=== PATIENT | male | born 1970 | race Hispanic/Latino ===

== ENCOUNTER 2024-01-22 10:07 | Inpatient (IN) | payer OTHER ==
[2024-01-22 11:10] LABS: Absolute Eosinophils 0.1 K/uL (0-0.5); Absolute Lymphocytes (CBC) 1.8 K/uL (0.7-4.9); Absolute Monocytes 0.4 K/uL (0.1-1.3); Absolute Neutrophil 3.2 K/uL (1.8-8.0); Basophils % 0.8 % (0-1.3); Eosinophils % 2.6 % (0-4.4); Hematocrit 46.3 % (39.6-49.0); Hemoglobin 15.3 g/dL (13.6-17.9); MCH 30.4 pg (27.0-35.0); MCV 92.1 fL (80-100); MPV 9.7 fL (7.6-11.3); Monocytes % 6.6 % (3.3-12.3); Nucleated Red Blood Cells % 0.1 % (0-0); Platelets 143 thou/uL (152-406); RBC Red Blood Cell Count 5.02 M/uL (4.33-5.43); Red Cell Distribution Width 13.8 % (12.1-15.2)
[2024-01-22 11:24] LABS: Albumin/Globulin Ratio 1.1 (1.1-1.8); Anion Gap 10.5 mEq/L (5.0-15.0); Bilirubin Total 0.7 mg/dL (0.2-1.0); Globulin 3.5 g/dL (2.3-3.5); Potassium 3.5 mEq/L (3.5-5.1); Protein, Total 7.5 g/dL (6.4-8.2)
[2024-01-22] MEDS ORDERED: NA CHLORIDE 0.9% 1,000 ML ONE (11:46)
[2024-01-22] MEDS ORDERED: NA CHLORIDE 0.9% 100 ML ONE (13:32)
[2024-01-22] MEDS ORDERED: ONDANSETRON 4 MG/2 ML VIAL ONE (13:32)
[2024-01-22] MEDS ORDERED: PIPERACIL/TAZO 3.375 GM VIAL IV ONE (13:32)
[2024-01-22] MEDS ORDERED: MORPHINE 4 MG/ML SYR ONE (13:32)
--- NOTE | 2024-01-22 13:36 | ER ---
Nurse's Notes [facility] Name: Jese Guzman Age: 53 yrs Sex: Male : 1970 Arrival Date: 01/22/2024 Time: 10:07 Bed 11 Private MD: Diagnosis: Sebaceous cyst-INFECTED;Type 2 diabetes mellitus with hyperglycemia Presentation: 01/21 10:35 Chief complaint: Patient states: abscess to upper mid back X 3 weeks, it opened up iw yesterday . was told to come here by Dr. Pathak office. Coronavirus screen: At this time, the client does not indicate any symptoms associated with coronavirus-19. Ebola Screen: No symptoms or risks identified at this time. Initial Sepsis Screen: Does the patient meet any 2 criteria? No. Patient's initial sepsis screen is negative. Does the patient have a suspected source of infection? No. Patient's initial sepsis screen is negative. Risk Assessment: Do you want to hurt yourself or someone else? Patient reports no desire to harm self or others. Onset of symptoms was January 05, 2024. 10:35 Method Of Arrival: Ambulatory iw 10:35 Acuity: ASHWIN 3 iw Historical: - Allergies: 10:36 No Known Allergies; iw - PMHx: 10:36 Diabetes mellitus; Anxiety; iw - Immunization history:: Adult Immunizations up to date. - Family history:: not pertinent. Screenin:57 [facility] ED Fall Risk Assessment (Adult) History of falling in the last 3 months, ap3 including since admission No falls in past 3 months (0 pts) Confusion or Disorientation No (0 pts) Intoxicated or Sedated No (0 pts) Impaired Gait No (0 pts) Mobility Assist Device Used No (0 pt) Altered Elimination No (0 pt) Score/Fall Risk Level 0 - 2 = Low Risk Oriented to surroundings, Maintained a safe environment, Educated pt \T\ family on fall prevention, incl call for assistance when getting out of bed, Assessed \T\ reinforced patient's understanding of fall precautions, Hourly rounding (assess needs \T\ fall precautionary measures) done, Used ambulatory aids as needed (educated on \T\ assisted with), Used gait belt as appropriate. Abuse screen: Denies threats or abuse. Nutritional screening: No deficits noted. Tuberculosis screening: No symptoms or risk factors identified. Assessment: 11:53 General: Appears uncomfortable, Behavior is calm, cooperative, appropriate for age. ll1 Pain: Complains of pain in back Quality of pain is described as aching. Derm: Abscess located on back is half dollar sized, has purulent drainage, is red, is raised. 12:57 General: Appears in no apparent distress. Behavior is calm, cooperative, appropriate ap3 for age. Pain: Complains of pain in back. Neuro: Level of Consciousness is awake, alert, obeys commands, Oriented to person, place, time, situation. Cardiovascular: Patient's skin is warm and dry. Respiratory: Airway is patent Respiratory effort is even, unlabored, Respiratory pattern is regular, symmetrical. Derm: Abscess located on back is half dollar sized. Vital Signs: 10:35 BP 148 / 81; Pulse 59; Resp 16; Temp 97.2; Pulse Ox 99% ; iw 13:45 BP 136 / 85; Pulse 48; Resp 17; Temp 97.6; Pulse Ox 100% ; ap3 ED Course: 10:13 Patient arrived in ED. ra3 10:29 Lanre Castaneda MD is Attending Physician. fabricio 10:36 Triage completed. iw 10:37 Arm band placed on. iw 10:45 Missed attempt(s): 20 gauge in left antecubital area. Bleeding controlled, band aid bc6 applied, catheter tip intact. 10:59 Comprehensive Metabolic Panel Sent. bc6 10:59 CBC with Diff Sent. bc6 10:59 Initial lab(s) drawn, by ct, sent to lab. Inserted saline lock: 22 gauge in left bc6 antecubital area, using aseptic technique. Blood collected. Flushed with 10 mL NS. 12:58 No provider procedures requiring assistance completed. ap3 12:59 Provided Education on: call light education. ap3 13:35 Marjan Bonilla MD is Hospitalizing Provider. fabricio 13:45 Patient has correct armband on for positive identification. Bed in low position. Call ap3 light in reach. Pulse ox on. NIBP on. Door closed. Noise minimized. Administered Medications: 11:50 Drug: NS 0.9% IV 1000 ml IV at 125 ml/hr continuous Route: IV; Rate: 125 ml/hr; Site: ll1 left forearm; 13:45 Drug: Piperacillin-Tazobactam IVPB 3.375 grams IVPB once over 60 mins; (mix in NS 100 ap3 mL) Route: IVPB; Infused Over: 60 mins; Site: left antecubital; 13:45 Not Given (Patient Refused): morphineor iv 4 mg IVP once over 4 mins ap3 13:45 Not Given (Patient Refused): ondansetron 4 mg IVP once; over 2 minutes ap3 Outcome: 13:36 Decision to Hospitalize by Provider. [facility] 15:47 Patient left the ED. ap3 Signatures: Lanre Castaneda MD MD cha Williams, Irene RN RN iw Ирина Fair RN RN ap3 Tosin Cota RN RN 1 Chante Erwin 6 Ana Byrne ra3 Corrections: (The following items were deleted from the chart) 10:37 10:35 Chief complaint: Patient states: abscess to upper mid back X 3 weeks, it opened iw up yesterday iw 10:37 10:35 Pulse 59bpm; Resp 16bpm; Pulse Ox 99%; Temp 97.2F; iw iw
--- NOTE | 2024-01-22 13:36 | EDPHYS ---
Physician Documentation [facility] Name: Jese Guzman Age: 53 yrs Sex: Male : 1970 Arrival Date: 01/22/2024 Time: 10:07 Bed 11 Private MD: NANCY Physician Lanre Castaneda HPI: 01/21 13:29 This 53 yrs old Male presents to ER via Ambulatory with complaints of Abscess fabricio - back. 13:29 The patient presents with an abscess of the back, The patient presents with cellulitis fabricio of the back. Description: The affected area is moderate sized, localized, draining, erythematous. Onset: The symptoms/episode began/occurred 1 week(s) ago. Possible cause(s): unknown. Modifying factors: the symptoms are alleviated by remaining still, the symptoms are aggravated by pressure, squeezing the lesion and expressing the contents, touching. Severity of symptoms: At their worst the symptoms were moderate, in the emergency department the symptoms are unchanged. The patient has experienced similar episodes in the past, multiple times. Historical: - Allergies: 10:36 No Known Allergies; iw - PMHx: 10:36 Diabetes mellitus; Anxiety; iw - Immunization history:: Adult Immunizations up to date. - Family history:: not pertinent. ROS: 13:29 Constitutional: Negative for fever, chills, and weight loss, Eyes: Negative for injury, fabricio pain, redness, and discharge, ENT: Negative for injury, pain, and discharge, Neck: Negative for injury, pain, and swelling, Cardiovascular: Negative for chest pain, palpitations, and edema, Respiratory: Negative for shortness of breath, cough, wheezing, and pleuritic chest pain, Abdomen/GI: Negative for abdominal pain, nausea, vomiting, diarrhea, and constipation, Back: Negative for injury and pain, : Negative for injury, bleeding, discharge, and swelling, MS/Extremity: Negative for injury and deformity, Neuro: Negative for headache, weakness, numbness, tingling, and seizure, Psych: Negative for depression, anxiety, suicide ideation, homicidal ideation, and hallucinations, Allergy/Immunology: Negative for hives, rash, and allergies, Endocrine: Negative for neck swelling, polydipsia, polyuria, polyphagia, and marked weight changes, Hematologic/Lymphatic: Negative for swollen nodes, abnormal bleeding, and unusual bruising, 13:29 Skin: Positive for cellulitis, erythema, swelling, of the back, Exam: 13:29 Constitutional: This is a well developed, well nourished patient who is awake, alert, fabricio and in no acute distress. Head/Face: Normocephalic, atraumatic. Eyes: Pupils equal round and reactive to light, extra-ocular motions intact. Lids and lashes normal. Conjunctiva and sclera are non-icteric and not injected. Cornea within normal limits. Periorbital areas with no swelling, redness, or edema. ENT: Nares patent. No nasal discharge, no septal abnormalities noted. Tympanic membranes are normal and external auditory canals are clear. Oropharynx with no redness, swelling, or masses, exudates, or evidence of obstruction, uvula midline. Mucous membranes moist. Neck: Trachea midline, no thyromegaly or masses palpated, and no cervical lymphadenopathy. Supple, full range of motion without nuchal rigidity, or vertebral point tenderness. No Meningismus. Chest/axilla: Normal chest wall appearance and motion. Nontender with no deformity. No lesions are appreciated. Cardiovascular: Regular rate and rhythm with a normal S1 and S2. No gallops, murmurs, or rubs. Normal PMI, no JVD. No pulse deficits. Respiratory: Lungs have equal breath sounds bilaterally, clear to auscultation and percussion. No rales, rhonchi or wheezes noted. No increased work of breathing, no retractions or nasal flaring. Abdomen/GI: Soft, non-tender, with normal bowel sounds. No distension or tympany. No guarding or rebound. No evidence of tenderness throughout. Male : Normal genitalia with no discharge or lesions. Skin: Warm, dry with normal turgor. Normal color with no rashes, no lesions, and no evidence of cellulitis. MS/ Extremity: Pulses equal, no cyanosis. Neurovascular intact. Full, normal range of motion. Neuro: Awake and alert, GCS 15, oriented to person, place, time, and situation. Cranial nerves II-XII grossly intact. Motor strength 5/5 in all extremities. Sensory grossly intact. Cerebellar exam normal. Normal gait. Psych: Awake, alert, with orientation to person, place and time. Behavior, mood, and affect are within normal limits. 13:29 Back: pain, that is moderate, ROM is normal, normal spinal alignment noted, CVA tenderness, is absent, vertebral tenderness, is not appreciated, 13:29 Skin: abscess, that is moderate sized, cellulitis, that is mild, induration, that is moderate is noted, 14:30 ECG was reviewed by the Attending Physician. [facility] Vital Signs: 10:35 BP 148 / 81; Pulse 59; Resp 16; Temp 97.2; Pulse Ox 99% ; iw 13:45 BP 136 / 85; Pulse 48; Resp 17; Temp 97.6; Pulse Ox 100% ; ap3 MDM: 10:29 Patient medically screened. [facility] 14:29 Differential diagnosis: abscess, cellulitis. Data reviewed: vital signs, nurses notes, [facility] lab test result(s), EKG. Consideration of Admission/Observation Patient was admitted/placed on observation. Escalation of care including admission/observation considered. I considered the following discharge prescriptions or medication management in the emergency department Medications were administered in the Emergency Department. See MAR. Independent interpretation of the following test(s) in the Emergency Department EKG: See my EKG interpretation above. Test considered but Not performed: Ultrasound no usg. Historians other than the Patient: pt well informed. Care significantly affected by the following chronic conditions: Diabetes, Hypertension, Obesity. Counseling: I had a detailed discussion with the patient and/or guardian regarding the historical points, exam findings, and any diagnostic results supporting the discharge/admit diagnosis, the presence of at least one elevated blood pressure reading (>120/80) during this emergency department visit, lab results, radiology results, the need for further work-up and treatment in the hospital. 01/21 10:29 Order name: CBC with Diff; Complete Time: 13:27 [facility] 01/21 10:29 Order name: Comprehensive Metabolic Panel; Complete Time: 13:27 [facility] 01/21 13:28 Order name: PT-INR [facility] 01/21 14:08 Order name: Urinalysis w/ reflexes EDCT 01/21 14:08 Order name: CBC with Automated Diff EDCT 01/21 14:08 Order name: CBC with Automated Diff EDMS 01/21 14:08 Order name: CBC with Automated Diff EDCT 01/21 14:08 Order name: CBC with Automated Diff EDCT 01/21 14:08 Order name: Comprehensive Metabolic Panel [facility] 01/21 14:08 Order name: Comprehensive Metabolic Panel [facility] 01/21 14:08 Order name: Comprehensive Metabolic Panel EDCT 01/21 14:08 Order name: Comprehensive Metabolic Panel [facility] 01/21 14:08 Order name: Lipid Profile EDCT 01/21 14:08 Order name: Lipid Profile [facility] 01/21 14:08 Order name: Magnesium EDCT 01/21 14:08 Order name: Magnesium EDCT 01/21 14:08 Order name: Magnesium EDCT 01/21 14:08 Order name: Magnesium EDCT 01/21 14:08 Order name: Phosphorus EDCT 01/21 14:08 Order name: Phosphorus EDCT 01/21 14:08 Order name: Phosphorus EDCT 01/21 14:08 Order name: Phosphorus EDCT 01/21 13:38 Order name: Chest Single View XRAY snw 01/21 14:08 Order name: [facility] INCENTIVE SPIROMETERY EDCT 01/21 14:48 Order name: RAD EDCT 01/21 13:28 Order name: EKG; Complete Time: 13:29 fabricio 01/21 14:08 Order name: CONS Physician Consult EDCT 01/21 14:10 Order name: Social Service Consult [facility] 01/21 13:28 Order name: EKG - Nurse/Tech; Complete Time: 14:37 fabricio EC:30 Rate is 48 beats/min. Rhythm is regular. QRS [place] is Normal. TN interval is normal. QRS fabricio interval is normal. QT interval is normal. No Q waves. T waves are Normal. No ST changes noted. Clinical impression: Sinus bradycardia and No evidence of ischemia. Interpreted by me. Reviewed by me. Administered Medications: 11:50 Drug: NS 0.9% IV 1000 ml IV at 125 ml/hr continuous Route: IV; Rate: 125 ml/hr; Site: ll1 left forearm; 13:45 Drug: Piperacillin-Tazobactam IVPB 3.375 grams IVPB once over 60 mins; (mix in NS 100 ap3 mL) Route: IVPB; Infused Over: 60 mins; Site: left antecubital; 13:45 Not Given (Patient Refused): morphineor iv 4 mg IVP once over 4 mins ap3 13:45 Not Given (Patient Refused): ondansetron 4 mg IVP once; over 2 minutes ap3 Disposition Summary: 01/22/24 13:36 Hospitalization Ordered Notes: Hospitalization Status: Observation fabricio Provider: Marjan Bonilla cha Location: Telemetry/MedSurg (observation) fabricio Condition: Stable fabricio Problem: new fabricio Symptoms: have improved fabricio Bed/Room Type: Standard fabricio Room Assignment: 423(01/22/24 14:20) bd Diagnosis - Sebaceous cyst - INFECTED fabricio - Type 2 diabetes mellitus with hyperglycemia fabricio Forms: - Medication Reconciliation Form fabricio - SBAR form fabricio - Leadership Thank You Letter fabricio Signatures: Dispatcher [employer] Margarita Estrada Corey, MD MD cha Williams, Irene, RN RN iw Prokisch, Amanda, RN RN ap3 Tosin Cota RN RN ll1 Corrections: (The following items were deleted from the chart) 14: 13:36 fabricio bd
[2024-01-22] MEDS ORDERED: SODIUM CHLORIDE 0.9% 10ML INJ IV PRN (13:59)
[2024-01-22] MEDS ORDERED: PROMETHAZINE INJ 25 MG/ML AMP IV PRN (13:59)
[2024-01-22] MEDS ORDERED: ACETAMINOPHEN 500 MG TAB PO PRN (13:59)
[2024-01-22] MEDS ORDERED: MORPHINE 4 MG/ML SYR IV PRN (13:59)
--- NOTE | 2024-01-22 14:07 | P.HP ---
Certification for Inpatient Patient admitted to: Inpatient With expected LOS: >2 Midnights Patient will require the following post-hospital care: Fpc Practitioner: I am a practitioner with admitting privileges, knowledge of patient current condition, hospital course, and medical plan of care. Services: Services provided to patient in accordance with Admission requirements found in Title 42 Section 412.3 of the Code of Federal Regulations <Tiffany Antonio - Last Filed: 01/22/24 18:01> Patient History Date of Service: 01/22/24 <Marjan Bonilla - Last Filed: 01/22/24 14:22> Date of Service: 01/22/24 Reason for admission: Infected sebaceous cyst, diabetes History of Present Illness: Mr. Clif Guzman is a 53-year-old male with a past medical history of hypertension and diabetes mellitus he went to Dr. Pathak outpatient for evaluation of a lesion on his back. Dr. Pathak sent him for admission, n.p.o. status after midnight, for I&D of infected sebaceous cyst tomorrow. Vital signs stable. Labs unremarkable Mr. Clif christensen taken was given Zosyn, morphine, and Zofran in the emergency department. Home medications list reviewed: Yes - Past Medical/Surgical History Has patient received pneumonia vaccine in the past: No Diabetic: Yes -: Hypertension -: Diabetes -: BPH -: Denies Psychosocial/ Personal History: Lives at home with his and son - Social History Smoking Status: Never smoker Alcohol use: Yes CD- Drugs: No Caffeine use: Yes Place of Residence: Home <Tiffany Antonio - Last Filed: 01/22/24 18:01> Allergies No Known Allergies Allergy (Unverified 01/22/24 14:48) Home Medications: Amlodipine [Norvasc] 5 mg PO DAILY 01/22/24 Atorvastatin Calcium [Lipitor] 20 mg PO BEDTIME 01/22/24 Fenofibrate 160 mg PO DAILY 01/22/24 Metformin HCl 500 mg PO BID 01/22/24 Tamsulosin [Flomax*] 1 cap PO DAILY 01/22/24 Valsartan/Hydrochlorothiazide [Valsartan-Hctz 160-12.5 mg Tab] 1 each PO DAILY 01/22/24 Review of Systems General: Malaise Integumentary: As per HPI <Cherie Antonioute Betancourt - Last Filed: 01/22/24 18:01> Physical Examination - Studies Laboratory Data (last 24 hrs) 01/22/24 01/22/24 11:00 11:00 WBC 5.60 Hgb 15.3 Hct 46.3 Plt Count 143 L Sodium 138 Potassium 3.5 BUN 12 Creatinine 0.87 Glucose 109 H Total Bilirubin 0.7 AST 47 H ALT 72 H Alkaline Phosphatase 91 <Marjan Bonilla C - Last Filed: 01/22/24 14:22> - Physical Exam General: Alert, In no apparent distress, Oriented x3 HEENT: Atraumatic, Normocephalic Neck: Supple Respiratory: Normal air movement Cardiovascular: Normal pulses, Regular rate/rhythm Capillary refill: <2 Seconds Gastrointestinal: Soft and benign Musculoskeletal: No clubbing Integumentary: Other (Sebaceous cyst to mid upper back, spontaneous rupture yesterday) Neurological: Normal speech, Normal tone, Normal affect Lymphatics: No axilla or inguinal lymphadenopathy External genitalia: Deferred Rectal: Deferred - Studies Laboratory Data (last 24 hrs) 01/22/24 01/22/24 11:00 11:00 WBC 5.60 Hgb 15.3 Hct 46.3 Plt Count 143 L Sodium 138 Potassium 3.5 BUN 12 Creatinine 0.87 Glucose 109 H Total Bilirubin 0.7 AST 47 H ALT 72 H Alkaline Phosphatase 91 <Tiffany Antoniolen - Last Filed: 01/22/24 18:01> Assessment and Plan - Plan Pt seen and examined. I agree with the note by the CUSTOMER RETENTION SPECIALIST. Pt is a 53yo male with past medical history of hypertension and diabetes mellitus who was sent to the ER by Dr. Rodriguez for infected sebaceous cyst on his back. On admission, lab studies show wbc 5.6, Hgb 15.3, K 3.5, Cr 0.[address] Pathak will take him to the OR tomorrow. At bedside, pt is in NAD. A/P: Infected sebaceous cyst on back: Continue iv zosyn. Dr. Pathak will take him to the OR tomorrow. Htn: continu ehome med DM II: Continue accuchek, SSI and ADA diet. DVT ppx: SCD Code: full <Marjan Bonilla C - Last Filed: 01/22/24 14:22> - Plan Infected sebaceous cyst Zosyn 3.375 g IV every 8h Consult Dr. Pathak Social service consult for home health for wound care secondary to location of abscess, patient will need assistance with dressing changes Hypertension Medications as directed Diabetes Monitor and treat Sliding scale insulin coverage per mild protocol N.p.o. status post midnight with gentle IVF Hypoglycemia protocol as needed VTE/GI prophylaxis Teds/Protonix Discharge Plan: Home Plan to discharge in: 72 Hours - Advance Directives Does patient have a Living Will: No Does patient have a Durable POA for Healthcare: No - Code Status/Comfort Care Code Status Assessed: Yes (Full) <Tiffany Antonio - Last Filed: 01/22/24 18:01>
--- NOTE | 2024-01-22 14:48 | RAD REPORT ---
EXAM DESCRIPTION: Alma Rosa Single View01/22/2024 2:21 pm CLINICAL HISTORY: Preop. Abscess within the back. COMPARISON: none FINDINGS: A few areas of scarring or subsegmental atelectasis are present within the left lung base The remainder of the lungs appear clear The heart appears borderline enlarged
[2024-01-22 16:19] VITALS: BMI 36.8
[2024-01-22 17:27] LABS: PT Prothrombin Time 11.1 SECONDS (9.4-12.5); Protime INR 0.99
[2024-01-22] MEDS: INSULIN REGULAR (HUMAN) 100 UNIT/ML SQ SCH (18:00)
[2024-01-22] MEDS: NA CHLORIDE 0.9% 1,000 ML IV SCH (21:15)
[2024-01-22] MEDS: ATORVASTATIN 20 MG TAB PO SCH (21:16)
[2024-01-22] MEDS: PIPER TAZO 3.375 GM in NA CHLORIDE 0.9% 100 ML IV SCH (21:16)
--- NOTE | 2024-01-22 22:48 | CON ---
Date of Consultation: 01/22/2024 Diagnosis: Infected back mass with cellulitis. History Of Present Illness: This is the case of a male, who comes to us with infected back mass. He was supposed to have it done electively. He has history of diabetes. He has been trying to find a place where he can have his mass excised, but last night it started to put some pus and blood from th e area. Today, it was not improving, so he decided to come to the ER. I was called for surgical arelis anastasia. Past Medical History: Diabetes, hypertension. Social History: He does not smoke. Drinks alcohol occasionally. Allergies: NONE. Medications: Include Norvasc, Flomax, metformin, fenofibrate. Family History: Noncontributory. Review of Systems: Malaise, pain, increased temperature in the back, purulent discharge, bleeding from the mass. Physical Examination: Vital Signs: Reviewed. General: The patient is awake, alert. HEENT: Pupils are equal and reactive. Anicteric. Neck: Supple. Chest: Clear. Heart: S1, S2. Abdomen: Soft and depressible. No guarding or rebound. Back: The patient has about a 5 x 5 cm mass consistent with an infected mass with cellulitis and abs cess. Laboratory Data: Blood work shows WBC count of 5.6 with hemoglobin of 15.3. INR is 0.99. Chloride is 108. Assessment: This is a 53-year-old patient with infected back mass with abscess. The patient will go for excisional biopsy of the back mass with abscess, drainage with benefits, alternatives, and risks including, but not limited to infection, bleeding, damage to adjacent structures, anesthesia complic ation, nonhealing wound, DC, and even . He also understands he will require wound care. TORREY/QUANG Voice ID: [id number] Report ID: [id number]
[2024-01-23] MEDS ORDERED: KETOROLAC 30 MG/ML INJ ONE (07:04)
[2024-01-23] MEDS ORDERED: FENTANYL CITR 100 MCG/2 ML ONE (07:04)
[2024-01-23] MEDS ORDERED: ONDANSETRON 4 MG/2 ML VIAL ONE (07:04)
[2024-01-23] MEDS ORDERED: MIDAZOLAM HCL 2 MG/2 ML INJ ONE (07:04)
[2024-01-23] MEDS ORDERED: dexAMETHasone 10 MG/ML VIAL ONE (07:04)
[2024-01-23] MEDS ORDERED: propofoL 200 MG/20 ML VIAL IV ONE (07:04)
[2024-01-23] MEDS ORDERED: LIDOCAINE 2% MPF 5 ML VIAL ONE (07:04)
[2024-01-23 07:55] LABS: Absolute Eosinophils 0.2 K/uL (0-0.5); Absolute Lymphocytes (CBC) 1.4 K/uL (0.7-4.9); Absolute Monocytes 0.5 K/uL (0.1-1.3); Absolute Neutrophil 3.5 K/uL (1.8-8.0); Basophils % 0.5 % (0-1.3); Eosinophils % 2.8 % (0-4.4); Hematocrit 41.4 % (39.6-49.0); Hemoglobin 13.7 g/dL (13.6-17.9); Lymphocytes % 25.4 % (15.3-44.8); MCH 30.1 pg (27.0-35.0); MCHC 33.1 g/dL (32.0-36.0); MCV 91.1 fL (80-100); MPV 9.5 fL (7.6-11.3); Monocytes % 8.5 % (3.3-12.3); Neutrophils % 62.8 % (41.7-73.7); Platelets 138 thou/uL (152-406); RBC Red Blood Cell Count 4.55 M/uL (4.33-5.43); Red Cell Distribution Width 14.1 % (12.1-15.2)
[2024-01-23 08:17] LABS: Albumin 3.3 g/dL (3.4-5.0); Anion Gap 7.8 mEq/L (5.0-15.0); Bilirubin Total 0.5 mg/dL (0.2-1.0); Globulin 3.2 g/dL (2.3-3.5); Magnesium 1.8 mg/dL (1.6-2.4); Phosphorus 3.1 mg/dL (2.5-4.9); Potassium 3.8 mEq/L (3.5-5.1); Protein, Total 6.5 g/dL (6.4-8.2)
--- NOTE | 2024-01-23 08:39 | P.BOP ---
Preoperative diagnosis: infected back subQ mass with abscess Postoperative diagnosis: same Primary procedure: Excisional biopsy of infected back subQ mass with abscess Estimated blood loss: <10cc Specimen: mass Findings: mass, abscess Anesthesia: General Complications: None Drain(s): Other (wet to dry) Transferred to: Recovery Room Condition: Good
--- NOTE | 2024-01-23 09:09 | OP ---
Date of Procedure: 01/23/2024 Surgeon: Ethan Pathak MD Preoperative Diagnosis: Infected back subcutaneous mass with abscess and cellulitis. Postoperative Diagnosis: Infected back subcutaneous mass with abscess and cellulitis. Procedure: Excisional biopsy of infected back subcutaneous mass with abscess drainage. Estimated Blood Loss: Less than 10 cc. Specimen: Mass. Finding: Mass with abscess. It is about 5 x 5 cm. Complications: None. Packing: Wet-to-dry. Indications: This is a case of a 53-year-old patient with a back mass. He is planning to have this excised, but in the last 24 hours, turned for further worse with purulent discharge and pus and redne ss and increased temperature. He came to the ER, admitted to the hospital for IV antibiotics and als o a surgical excision of the mass with drainage of an abscess. The patient is diabetic. He was expl ained the benefits, alternatives, and risks of keeping diabetes under control and also the need for w ound care as an outpatient. The benefits, alternatives, and risks of this procedure was fully explai jaswinder, which include, but not limited to infection, bleeding, damage to adjacent structures, anesthesia complication, recurrence, TN, and even . He also understands this may not relieve any symptoms . He might need more than one surgical intervention. He understood, signed a consent. The area of concern was marked by me and the patient in the holding room. Description Of Procedure: The patient was brought to the operating room, placed in supine position. Anesthesia was done without complication. The patient was placed in lateral decubitus position with proper protection. The back area was prepped and draped in a sterile fashion. The area was previou sly marked. We made a circumferential incision. We found the patient to have an abscess in that reg ion. The mass was excised. Loculations were explored and opened. The area was irrigated hemostasis obtained and the area was packed with wet-to-dry dressing. The patient tolerated the procedure well . The patient was sent to recovery in stable condition. TORREY/QUANG Voice ID: [id number] Report ID: [id number]
[2024-01-23 09:21] VITALS: O2SAT 97
--- NOTE | 2024-01-23 09:29 | P.DS ---
Admission Date: 01/22/24 Discharge Date: 01/23/24 Reason for Admission: Infected sebaceous cyst, diabetes Consultations: Dr. Pathak Procedures: I&D Brief History of Present Illness: Mr. Clif Guzman is a 53-year-old male with a past medical history of hypertension and diabetes mellitus he went to Dr. Pathak outpatient for evaluation of a lesion on his back. Dr. Pathak sent him for admission, n.p.o. status after midnight, for I&D of infected sebaceous cyst tomorrow. Vital signs stable. Labs unremarkable Mr. Clif pearson was given Zosyn, morphine, and Zofran in the emergency department. Hospital Course: Mr. Clif Guzman underwent an I&D in the operating room this morning with Dr. Pathak. He will be discharged home on p.o. antibiotics and will need daily wet-to-dry dressing changes to his upper back. We will inquire regarding home health to assist with dressing changes. Dr. Pathak would like the patient to follow-up for wound care at the [facility] [place] on Saturday. The patient must call for an appointment time. <Tiffany Antonio - Last Filed: 01/23/24 09:21> Admission Date: 01/22/24 Discharge Date: 01/23/24 Hospital Course: Pt seen and examined. I agree with the note by the PRINCIPAL ACCOUNTS CLERK. The Gen surgeon took him to the OR for excision of the infected sebaceous cyst. Pt [facility] <Marjan Bonilla - Last Filed: 01/23/24 12:43> Disposition: DC HOME/HOME HEALTH CARE Discharge Condition: GOOD Vital Signs/Physical Exam: Temp Pulse Resp BP Pulse Ox 98.5 F 67 16 110/81 98 01/23/24 09:08 01/23/24 09:08 01/23/24 09:08 01/23/24 09:08 01/23/24 04:00 Laboratory Data at Discharge: WBC 5.50 thou/uL (4.3-10.9) 01/23/24 07:05 Hgb 13.7 g/dL (13.6-17.9) D 01/23/24 07:05 Hct 41.4 % (39.6-49.0) 01/23/24 07:05 Plt Count 138 thou/uL (152-406) L 01/23/24 07:05 PT 11.1 SECONDS (9.4-12.5) 01/22/24 17:06 INR 0.99 01/22/24 17:06 Sodium 140 mEq/L (136-145) 01/23/24 07:05 Potassium 3.8 mEq/L (3.5-5.1) 01/23/24 07:05 BUN 15 mg/dL (7-18) 01/23/24 07:05 Creatinine 0.77 mg/dL (0.70-1.30) 01/23/24 07:05 Glucose 124 mg/dL (74-106) H 01/23/24 07:05 Phosphorus 3.1 mg/dL (2.5-4.9) 01/23/24 07:05 Magnesium 1.8 mg/dL (1.6-2.4) 01/23/24 07:05 Total Bilirubin 0.5 mg/dL (0.2-1.0) 01/23/24 07:05 AST 41 U/L (15-37) H 01/23/24 07:05 ALT 66 U/L (16-61) H 01/23/24 07:05 Alkaline Phosphatase 65 U/L (45-117) D 01/23/24 07:05 Triglycerides 91 mg/dL (<150) 01/23/24 07:05 Cholesterol 95 mg/dL (<200) 01/23/24 07:05 HDL Cholesterol 36 mg/dL (40-60) L 01/23/24 07:05 Cholesterol/HDL Ratio 2.64 01/23/24 07:05 <Antonio,Tiffany Serafin - Last Filed: 01/23/24 09:21> Vital Signs/Physical Exam: Temp Pulse Resp BP Pulse Ox 98.5 F 65 16 107/64 97 01/23/24 09:08 01/23/24 09:53 01/23/24 10:04 01/23/24 09:53 01/23/24 10:04 Laboratory Data at Discharge: WBC 5.50 thou/uL (4.3-10.9) 01/23/24 07:05 Hgb 13.7 g/dL (13.6-17.9) D 01/23/24 07:05 Hct 41.4 % (39.6-49.0) 01/23/24 07:05 Plt Count 138 thou/uL (152-406) L 01/23/24 07:05 PT 11.1 SECONDS (9.4-12.5) 01/22/24 17:06 INR 0.99 01/22/24 17:06 Sodium 140 mEq/L (136-145) 01/23/24 07:05 Potassium 3.8 mEq/L (3.5-5.1) 01/23/24 07:05 BUN 15 mg/dL (7-18) 01/23/24 07:05 Creatinine 0.77 mg/dL (0.70-1.30) 01/23/24 07:05 Glucose 124 mg/dL (74-106) H 01/23/24 07:05 Phosphorus 3.1 mg/dL (2.5-4.9) 01/23/24 07:05 Magnesium 1.8 mg/dL (1.6-2.4) 01/23/24 07:05 Total Bilirubin 0.5 mg/dL (0.2-1.0) 01/23/24 07:05 AST 41 U/L (15-37) H 01/23/24 07:05 ALT 66 U/L (16-61) H 01/23/24 07:05 Alkaline Phosphatase 65 U/L (45-117) D 01/23/24 07:05 Triglycerides 91 mg/dL (<150) 01/23/24 07:05 Cholesterol 95 mg/dL (<200) 01/23/24 07:05 HDL Cholesterol 36 mg/dL (40-60) L 01/23/24 07:05 Cholesterol/HDL Ratio 2.64 01/23/24 07:05 <Marjan Bonilla - Last Filed: 01/23/24 12:43> Diet: ADA Activity: Ad radu <Antonio,Tiffany Serafin - Last Filed: 01/23/24 09:21> <Marjan Bonilla - Last Filed: 01/23/24 12:43> Home Medications: Amlodipine [Norvasc*] 5 mg PO DAILY 01/22/24 Atorvastatin Calcium [Lipitor*] 20 mg PO BEDTIME 01/22/24 Fenofibrate 160 mg PO DAILY 01/22/24 Metformin HCl 500 mg PO BID 01/22/24 Tamsulosin [Flomax*] 1 cap PO DAILY 01/22/24 Valsartan/Hydrochlorothiazide [Valsartan-Hctz 160-12.5 mg Tab] 1 each PO DAILY 01/22/24 Doxycycline Hyclate 100 mg PO BID #20 tab 01/23/24 traMADol HCL [Ultram*] 50 mg PO Q6H PRN #20 tab 01/23/24 New Medications: Doxycycline Hyclate 100 mg PO BID #20 tab traMADol HCL [Ultram*] 50 mg PO Q6H PRN #20 tab PRN Reason: Pain Physician Discharge Instructions: Wet to Dry NS daily Pto [facility] Pt to call for appointment time [phone] Mr. Clif Guzman underwent an I&D in the operating room this morning with Dr. Pathak. He will be discharged home on p.o. antibiotics and will need daily wet-to-dry dressing changes to his upper back. We will inquire regarding home health to assist with dressing changes. Dr. Pathak would like the patient to follow-up for wound care at the [facility] on Saturday. The patient must call for an appointment time. Rx: Doxycycline 100 mg p.o. twice daily #20 Tramadol 50mg po QID prn #20 Follow-up: Dr. Pathak, [facility] Followup: Ethan Pathak MD [Primary Care Provider] -
[2024-01-23] MEDS: hydroCHLOROthiazide 12.5 MG CAP PO SCH (09:52)
[2024-01-23] MEDS: PANTOPRAZOLE 40 MG INJ IVP SCH (09:52)
[2024-01-23] MEDS: AMLODIPINE 5 MG TAB PO SCH (09:53)
[2024-01-23] MEDS: TAMSULOSIN 0.4 MG SR CAP PO SCH (09:53)
[2024-01-23] MEDS: VALSARTAN 160 MG TAB PO SCH (09:53)
[2024-01-23] MEDS: FENOFIBRATE 160 MG TAB PO SCH (09:54)
[2024-01-23] MEDS: HYDROCODONE/APAP 5/325 MG TAB PO PRN (10:04)
[2024-01-23 12:54] VITALS: BP 117/73; TEMP 96.7
--- NOTE | 2024-01-23 16:23 | EKG ---
Test Date: 2024-01-22 Test Time: 14:27:09 Billing Coordinator: TALA MEASUREMENT RESULTS: Intervals: Rate: 48 MI: 166 QRSD: 92 QT: 468 QTc: 418 [place]: P: 50 MI: 166 QRS: 3 T: 25 INTERPRETIVE STATEMENTS: Marked sinus bradycardia Abnormal ECG No previous ECG available for comparison Electronically Signed On 01-23-24 16:21:33 CDT by Flaquito Crocker
== END 2024-01-23 15:51 | disposition home health service (06) | DRG 607 ==
LOC: ER 10:07 → ERHOLD 13:59 → 4TH 14:48
PROVIDERS: ADMIT Hospitalist; ATTEND Hospitalist
PROC: 0JB70ZX Excision of Back Subcutaneous Tissue and Fascia, Open Approach, Diagnostic (ICD-10-PCS; principal; 2024-01-23 07:30)
DX: L72.3 Sebaceous cyst (principal); L03.312 Cellulitis of back [any part except buttock and flank]; L02.212 Cutaneous abscess of back [any part, except buttock and flank]; I10 Essential (primary) hypertension; E11.65 Type 2 diabetes mellitus with hyperglycemia; N40.0 Benign prostatic hyperplasia without lower urinary tract symptoms; Z68.36 Body mass index [BMI] 36.0-36.9, adult; Z79.84 Long term (current) use of oral hypoglycemic drugs; Z79.899 Other long term (current) drug therapy
CPT/HCPCS: 36415; 71045; 80053; 80061; 82947; 83735; 84100; 85025; 85610; 88304; 93005; 94010; 96374; 99284; J1100; J2001; J2250; J2405; J2470; J2543; J2704; J3010; J7030